=== PATIENT | female | born 1955 | race Caucasian/White ===

== ENCOUNTER 2023-01-24 19:31 | Emergency (ER) | payer OTHER ==
[2023-01-24] MEDS ORDERED: IBUPROFEN 600 MG TABLET PO STA (19:43)
--- NOTE | 2023-01-24 19:44 | ED Physician Documentation ---
PD HPI UPPER EXT INJURY - Stated complaint Stated Complaint: LT WRIST INJ - Chief complaint Chief Complaint: Ext Problem - History obtained from History obtained from: Patient - Additonal information Additional information: [id number] woman tripped over the dog leash and landed on outstretched left wrist with isolated injury there with moderate pain. No other injuries. PD PAST MEDICAL HISTORY - Allergies Allergies/Adverse Reactions: Allergies Allergy/AdvReac Type Severity Reaction Status Date / Time Sulfa (Sulfonamide Allergy Itching Verified 01/24/23 19:40 Antibiotics) PD ED PE NORMAL - Vitals Vital signs reviewed: Yes - General General: Alert and oriented X 3, No acute distress - Extremities Extremities: Other (Mild deformity and swelling of the left wrist. Mild tenderness but cannot range it at all. No hand or elbow tenderness. NVI in the hand.) - Neuro Neuro: Alert and oriented X 3, Normal speech Results - Vitals Vitals: Vital Signs - 24 hr 01/24/23 01/24/23 19:35 20:09 Temperature 37.2 C Heart Rate 91 67 Respiratory 16 17 Rate Blood Pressure 142/76 H 141/81 H O2 Saturation 94 95 Oxygen O2 Source Room air - Rads (name of study) 4 view x-ray left wrist showing distal radial fracture with mild impaction and intra-articular involvement and ulnar styloid fracture Relevant Findings:: Final report received, EMP independent interpretation of test Procedures - Splint (location) - Minor Left upper extremity Splint applied by: Tech Type of splint: Fiberglass, Short arm, Volar cock up Other: Patient tolerated well, No complications, Neurovascular intact Departure - Departure Disposition: 01 Home, Self Care Clinical Impression: Colles' fracture Condition: Good Record reviewed to determine appropriate education?: Yes Instructions: ED Fx Forearm Radius Ulna No Redu Requ Follow-Up: [facility] [Provider Group] Comments: Keep the splint on and dry, Tylenol and/or ibuprofen as needed for pain. Follow-up with the orthopedist office within the week, calling Thursday for an appointment. Forms: PCP List Discharge Date/Time: 01/24/23 20:19
--- NOTE | 2023-01-24 20:05 | XRAY Report ---
PROCEDURE: Wrist 4 View LT INDICATIONS: wrist inj TECHNIQUE: 3 views of the wrist were acquired. COMPARISON: None. FINDINGS: Bones: There is a distal radial metaphyseal fracture with intra-articular involvement. There is mild impaction. Nondisplaced ulnar styloid fracture is noted. No suspicious bony lesions. Osteopenia. Soft tissues: No suspicious soft tissue calcifications or masses. Soft tissue swelling. IMPRESSION: 1. Distal radial metaphyseal fracture. 2. Ulnar styloid fracture. Reviewed by: Apurva Chauhan MD on 01/24/2023 8:04 PM PDT Approved by: Apurva Chauhan MD on 01/24/2023 8:04 PM PDT Station ID: [id number]
[2023-01-24 20:12] VITALS: BP 141/81; O2SAT 95
== END 2023-01-24 20:19 | disposition home or self-care (01) ==
LOC: ED 19:31
DX: S52.532A Colles' fracture of left radius, initial encounter for closed fracture (principal); W01.0XXA Fall on same level from slipping, tripping and stumbling without subsequent striking against object, initial encounter
CPT/HCPCS: 29125; 73110; 99283; 99284; A9270

== ENCOUNTER 2023-02-02 08:00 | Outpatient (CLI) | payer OTHER ==
--- NOTE | 2023-02-02 14:31 | XRAY Report ---
PROCEDURE: Wrist 3 View LT INDICATIONS: LEFT WRIST FRACTURE TECHNIQUE: 3 views of the wrist were acquired. COMPARISON: 01/24/2023 FINDINGS: Bones: Impacted, mildly comminuted, intra-articular distal radius fracture demonstrates stable to mi nimally increased dorsal angulation. Radiocarpal alignment and distal radioulnar joint remains normal . There is a nondisplaced ulnar styloid fracture with fragments in stable position. There is a backgr ound of osteopenia and moderate first carpometacarpal joint osteoarthritis. Soft tissues: No suspicious soft tissue calcifications or masses. Mild swelling. No foreign bodies. IMPRESSION: 1. Impacted, intra-articular distal radius fracture with minimally increased dorsal angulation. 2. Otherwise stable and near-anatomic alignment. Reviewed by: Carolyne Carr MD on 02/02/2023 2:30 PM PDT Approved by: Carolyne Carr MD on 02/02/2023 2:30 PM PDT Station ID: [id number]
== END 2023-02-02 08:01 | disposition home or self-care (01) ==
LOC: DI.WOS 08:00
PROVIDERS: ATTEND Orthopaedic Surgery
DX: S52.615A Nondisplaced fracture of left ulna styloid process, initial encounter for closed fracture (principal); S52.502A Unspecified fracture of the lower end of left radius, initial encounter for closed fracture

== ENCOUNTER 2023-03-03 08:00 | Outpatient (CLI) | payer OTHER ==
--- NOTE | 2023-03-03 16:45 | XRAY Report ---
PROCEDURE: Wrist 3 View LT INDICATIONS: LEFT WRIST FRACTURE TECHNIQUE: 3 views of the wrist were acquired. COMPARISON: Left wrist x-ray series 02/02/2022. FINDINGS: Bones: Distal radius and ulnar styloid process fractures without significant change compared to prio r study. Alignment of distal radius fracture is unchanged. Soft tissues: No suspicious soft tissue calcifications or masses. IMPRESSION: Distal radius and styloid process fractures. Reviewed by: Gabby Chapa MD, PhD on 03/03/2023 4:44 PM PDT Approved by: Gabby Chapa MD, PhD on 03/03/2023 4:44 PM PDT Station ID: [id number]
== END 2023-03-03 23:59 | disposition home or self-care (01) ==
LOC: DI.WOS 08:00
PROVIDERS: ATTEND Physician Assistant Surgical
DX: S52.532D Colles' fracture of left radius, subsequent encounter for closed fracture with routine healing (principal)

== ENCOUNTER 2023-03-26 08:12 | Outpatient (CLI) | payer OTHER ==
--- NOTE | 2023-03-26 22:05 | XRAY Report ---
PROCEDURE: Knee 2 View RT INDICATIONS: PAIN IN RIGHT KNEE TECHNIQUE: 3 views of the knee was obtained. COMPARISON: None FINDINGS: Bones: No fractures or dislocations. No suspicious bony lesions. Mild medial compartment joint spac e narrowing Soft tissues: No knee joint effusion. No suspicious soft tissue calcifications or masses. IMPRESSION: Mild medial compartment osteoarthritis Reviewed by: Bill Mehta MD on 03/26/2023 9:04 PM [place] Approved by: Bill Mehta MD on 03/26/2023 9:04 PM [place] Station ID: [id number]
== END 2023-03-26 08:13 | disposition home or self-care (01) ==
LOC: DI 08:12
PROVIDERS: ATTEND Nurse Practitioner
DX: M17.11 Unilateral primary osteoarthritis, right knee (principal)

== ENCOUNTER 2023-07-06 08:00 | Outpatient (CLI) | payer MEDICARE, OTHER ==
--- NOTE | 2023-07-06 17:26 | XRAY Report ---
PROCEDURE: Knee 4 View RT INDICATIONS: RIGHT KNEE PAIN TECHNIQUE: 4 views of the knee(s) were acquired. COMPARISON: 03/26/2023. FINDINGS: Bones: No acute fractures or dislocations. No suspicious bony lesions. Mild tricompartmental dege nerative changes of the right knee. Findings are most pronounced in the medial femorotibial compartme nt with minimal joint space narrowing. Minimal degenerative changes involving the lateral patellofemo ral joint space. Soft tissues: Very small knee joint effusion. No suspicious soft tissue calcifications or masses. IMPRESSION: No acute bony abnormality. Mild tricompartmental degenerative changes of the right knee with very small joint effusion. Reviewed by: Cullen Bhatia MD on 07/06/2023 5:25 PM PST Approved by: Cullen Bhatia MD on 07/06/2023 5:25 PM PST Station ID: [id number]
== END 2023-07-06 23:59 | disposition home or self-care (01) ==
LOC: DI.WOS 08:00
PROVIDERS: ATTEND Physician Assistant Surgical
DX: M23.91 Unspecified internal derangement of right knee (principal); M17.11 Unilateral primary osteoarthritis, right knee; M25.461 Effusion, right knee

== ENCOUNTER 2023-07-17 11:23 | Outpatient (CLI) | payer MEDICARE ==
--- NOTE | 2023-07-17 19:28 | XRAY Report ---
PROCEDURE: Shoulder 2+V RT INDICATIONS: RIGHT SHOULDER PAIN TECHNIQUE: 3 views of the shoulder were acquired. COMPARISON: None FINDINGS: Bones: No fractures or dislocations. No suspicious bony lesions. Visualized ribs appear intact. Soft tissues: No suspicious soft tissue calcifications. IMPRESSION: Unremarkable shoulder radiographs Reviewed by: Bill Mehta MD on 07/17/2023 6:27 PM [place] Approved by: Bill Mehta MD on 07/17/2023 6:[address] [facility] Station ID: [id number]
== END 2023-07-17 11:24 | disposition home or self-care (01) ==
LOC: DI 11:23
PROVIDERS: ATTEND Physician Assistant
DX: M25.511 Pain in right shoulder (principal)

== ENCOUNTER 2023-08-03 07:49 | Day surgery (SDC) | payer MEDICARE ==
[2023-08-03] MEDS: LACTATED RINGERS 1,000 ML IV ONE ×2 (08:13→09:09)
--- NOTE | 2023-08-03 08:48 | ANESTHESIA ---
Pre-Anesthesia VS, & Labs - Diagnosis Screening exam, family history of colon cancer - Procedure colonoscopy Vital Signs: Temp Pulse Resp BP Pulse Ox O2 Flow Rate 36.5 C 81 16 145/86 H 95 08/03/23 07:55 08/03/23 07:55 08/03/23 07:55 08/03/23 07:55 08/03/23 07:55 Height: 5 ft 2 in Weight (kg): 66 kg Body Mass Index: 26.6 BMI Classification: Overweight - NPO >8 hours - Is Patient ?: No Home Medications and Allergies Home Medications: Ambulatory Orders Alendronate [Fosamax] 70 mg PO ONCE 07/31/23 Escitalopram [Lexapro] 15 mg PO DAILY 07/31/23 Rosuvastatin Calcium [Crestor] 10 mg PO DAILY 07/31/23 Alendronate [Fosamax] 70 mg PO ONCE 07/31/23 Escitalopram [Lexapro] 15 mg PO DAILY 07/31/23 Rosuvastatin Calcium [Crestor] 10 mg PO DAILY 07/31/23 Allergies/Adverse Reactions: Allergies Allergy/AdvReac Type Severity Reaction Status Date / Time Sulfa (Sulfonamide Allergy Itching Verified 01/24/23 19:40 Antibiotics) Anes History & Medical History - Anesthetic History Anesthesia Complications: reports: No previous complications - Medical History Cardiovascular: reports: High cholesterol Pulmonary: reports: None Gastrointestinal: reports: Colon polyps Urinary: reports: Kidney stones Neuro: reports: None Musculoskeletal: reports: Osteoarthritis Endocrine/Autoimmune: reports: None Skin: reports: None Smoking Status: Never smoker Psychosocial: reports: No issues indicated History of Cancer?: No - Surgical History General: reports: Colonoscopy Eyes Ears Nose Throat (EENT): reports: Tonsil/Adenoidectomy Urologic: reports: Ureterolithotomy (stones) Gynecologic: reports: section Exam General: Alert, Oriented x3, Cooperative, No acute distress Dental: WNL Mouth Openin Fingerbreadth Neck Mobility: Normal Mallampati classification: II Thyromental Distance: 4-6 cm Mental/Cognitive Status: Alert/Oriented X3, Normal for patient Plan Anesthesia Type: General, Total IV Consent for Procedure(s) Verified and Reviewed: Yes Code Status: Attempt Resuscitation ASA classification: 2-Mild systemic disease Is this case an emergency?: No
[2023-08-03] MEDS ORDERED: PROPOFOL 500 MG/50 ML 500 MG/50 ML VIAL ONE (08:50)
[2023-08-03 09:24] VITALS: O2SAT 98
[2023-08-03 09:45] VITALS: BP 134/74
--- NOTE | 2023-08-03 13:14 | ANESTHESIA POST OP EVALUATION ---
Anesthesia Post Eval - Post Anesthesia Eval Vitals: Last Vital Signs Temp 36.3 C L 08/03/23 09:42 Pulse 63 08/03/23 09:42 Resp 14 08/03/23 09:42 BP 134/74 H 08/03/23 09:42 Pulse Ox 98 08/03/23 09:42 O2 Flow Rate CV Function Including HR & BP: Stable Pain Control: Satisfactory Nausea & Vomiting: Negative Mental Status: Baseline Respiratory Status: Airway Patent Hydration Status: Satisfactory Anesthesia Complications: None
== END 2023-08-03 07:50 | disposition home or self-care (01) ==
LOC: SDS 07:49
PROVIDERS: ATTEND Surgery
DX: Z12.11 Encounter for screening for malignant neoplasm of colon (principal); K64.2 Third degree hemorrhoids; Z80.0 Family history of malignant neoplasm of digestive organs; Z86.010 Personal history of colon polyps
CPT/HCPCS: G0105; J7120